=== PATIENT | male | born 1980 | race African-American/Black ===

== ENCOUNTER → 2017-02-19 | Outpatient (CLI) | payer OTHER ==
--- NOTE | 2017-02-18 10:46 | DIAGNOSTIC IMAGING REPORT ---
THORACIC SPINE 3-VIEWS CLINICAL HISTORY: UPPER BACK PAIN AFTER AN INJURY COMPARISON STUDY: No previous studies for comparison. FINDINGS: There is a minimal spinal curvature. The paraspinal line is not displaced. No fractures or subluxations are visualized. IMPRESSION: No fractures or subluxations identified on conventional radiographic imaging Electronically signed by: Christopher Butler M.D. 02/18/2017 10:45 AM Dictated Date/Time: 02/18/2017 10:44 AM
== END | disposition home or self-care (01) ==
LOC: C.RDSM 15:37
PROVIDERS: ATTEND Family Medicine
DX: M54.6 Pain in thoracic spine (principal)